=== PATIENT | female | born 1960 | race African-American/Black ===

== ENCOUNTER 2023-06-21 04:43 | Day surgery (SDC) | payer OTHER ==
[2023-06-15 08:50] VITALS: BMI 38.2
[2023-06-21 11:16] VITALS: TEMP 98
[2023-06-21 11:31] VITALS: BP 162/79; PULSE 70; RESP 13
== END 2023-06-21 11:34 | disposition home or self-care (01) ==
LOC: JASU-ENDO 04:43
PROVIDERS: ATTEND Internal Medicine Gastroenterology
PROC: 0DB78ZX Excision of Stomach, Pylorus, Via Natural or Artificial Opening Endoscopic, Diagnostic (ICD-10-PCS; 2023-06-21)
PROC: 0DB68ZX Excision of Stomach, Via Natural or Artificial Opening Endoscopic, Diagnostic (ICD-10-PCS; principal; 2023-06-21 09:15)
DX: K29.50 Unspecified chronic gastritis without bleeding (principal); K44.9 Diaphragmatic hernia without obstruction or gangrene
CPT/HCPCS: 82962; 88305-TC; 88342-TC

== ENCOUNTER 2023-07-05 05:17 | Day surgery (SDC) | payer OTHER ==
[2023-06-30 12:20] VITALS: BMI 38.2
[2023-07-05 10:45] VITALS: TEMP 98
[2023-07-05 11:09] VITALS: RESP 14
[2023-07-05 11:18] VITALS: BP 140/81; PULSE 72
== END 2023-07-05 11:30 | disposition home or self-care (01) ==
LOC: JASU-ENDO 05:17
PROVIDERS: ATTEND Internal Medicine Gastroenterology
PROC: 0DBH8ZX Excision of Cecum, Via Natural or Artificial Opening Endoscopic, Diagnostic (ICD-10-PCS; 2023-07-05)
PROC: 0DBN8ZX Excision of Sigmoid Colon, Via Natural or Artificial Opening Endoscopic, Diagnostic (ICD-10-PCS; 2023-07-05)
PROC: 0DBP8ZX Excision of Rectum, Via Natural or Artificial Opening Endoscopic, Diagnostic (ICD-10-PCS; principal; 2023-07-05 10:08)
DX: Z12.11 Encounter for screening for malignant neoplasm of colon (principal); K62.1 Rectal polyp; K63.5 Polyp of colon; K64.8 Other hemorrhoids; K57.30 Diverticulosis of large intestine without perforation or abscess without bleeding; Z86.010 Personal history of colon polyps; Z80.0 Family history of malignant neoplasm of digestive organs
CPT/HCPCS: 82962; 88305-TC